=== PATIENT | male | born 1990 | race Caucasian/White ===

== ENCOUNTER 2017-04-14 10:34 | Emergency (ER) | payer SELFPAY ==
[2017-04-14] MEDS: ONDANSETRON (ODT) 4 MG TAB ODT (11:29)
[2017-04-14] MEDS: LORAZEPAM 2 MG INJ IM (11:29)
[2017-04-14] MEDS: ONDANSETRON 4 MG INJ IV (12:02)
[2017-04-14] MEDS: LORAZEPAM 2 MG INJ IV (12:02)
[2017-04-14 12:05] LABS: ADD MAN DIFF? NO
[2017-04-14] MEDS: SOD CHLORIDE 0.9% 1,000 ML IV (12:05)
[2017-04-14 12:08] LABS: BASOPHIL # 0.1 10^3/ul (0.0-0.1); BASOPHILS % 0.3 % (0.0-2.0); EOSINOPHILS % 0.1 % (0.0-7.0); HEMATOCRIT 42.6 % (42.0-52.0); HEMOGLOBIN 14.9 g/dl (14.0-18.0); LYMPHOCYTES # 1.3 10^3/ul (0.8-2.9); LYMPHOCYTES % 8.5 % (15.0-51.0); MEAN CORPUSCULAR HEMOGLOBIN 32.3 pg (29.0-33.0); MEAN CORPUSCULAR VOLUME 92.2 fl (82.0-101.0); MEAN PLATELET VOLUME 10.8 fl (7.4-10.4); MONOCYTE # 0.5 10^3/ul (0.3-0.9); MONOCYTES % 3.3 % (0.0-11.0); NEUTROPHIL # 13.3 10^3/ul (1.6-7.5); NEUTROPHILS % 87.3 % (39.0-77.0); PLATELET COUNT 201 10^3/UL (140-415); RED BLOOD COUNT 4.62 10^6/ul (4.70-6.10); RED CELL DISTRIBUTION WIDTH 12.4 % (11.5-14.5)
[2017-04-14 12:08] LABS: WHITE BLOOD COUNT 15.3 10^3/ul (4.8-10.8)
[2017-04-14 12:24] LABS: ALANINE AMINOTRANSFERASE 37 IU/L (13-69); ALBUMIN 5.2 g/dl (3.3-4.9); ALBUMIN/GLOBULIN RATIO 1.36; ALKALINE PHOSPHATASE 86 IU/L (42-121); ANION GAP 19 (8-16); ASPARTATE AMINO TRANSFERASE 25 IU/L (15-46); BILIRUBIN,INDIRECT 0.6 mg/dl (0-1.1); BILIRUBIN,TOTAL 0.6 mg/dl (0.2-1.3); BLOOD UREA NITROGEN 15 mg/dl (7-20); CALCIUM 10.3 mg/dl (8.4-10.2); CARBON DIOXIDE 25 mmol/L (21-31); CHLORIDE 108 mmol/L (97-110); CREATININE 0.87 mg/dl (0.61-1.24); GLUCOSE 124 mg/dl (70-220); LIPASE 68 U/L (23-300); SODIUM 148 mmol/L (135-144)
[2017-04-14] MEDS: morphine 4 MG/ML VIAL IV (12:49)
[2017-04-14] MEDS: LIDOCAINE/MYLANTA 40 ML BTL PO (12:54)
== END 2017-04-14 13:31 | disposition home or self-care (01) ==
LOC: FTE 10:34
DX: G43.A0 Cyclical vomiting, in migraine, not intractable (principal)
CPT/HCPCS: 36415; 80053; 83690; 85025; 96372; 96374; 96375; 99284-25